=== PATIENT | male | born 1950 | race Caucasian/White ===

== ENCOUNTER 2022-07-07 20:31 | Emergency (ER) | payer MEDICARE, OTHER ==
--- NOTE | 2022-07-07 20:40 | NUR ---
PATIENT CALL TO TRIAGE, NO RESPONSE PATIENT LEFT WITHOUT BEING SEEN BY DR. PAGAN. NO FURTHER CARE PROVIDED FOR PATIENT.
--- NOTE | 2022-07-07 20:45 | NUR ---
CALLED FOR THE SECOND TIME , NO RESPONSE
--- NOTE | 2022-07-07 20:50 | NUR ---
CALLED FOR THE THIRD TIME NO RESPONSE
== END 2022-07-07 20:40 | disposition left against medical advice (07) ==
LOC: MED 20:31
DX: M79.603 Pain in arm, unspecified (principal); Z53.21 Procedure and treatment not carried out due to patient leaving prior to being seen by health care provider